=== PATIENT | female | born 1960 | race Caucasian/White ===

== ENCOUNTER 2022-09-12 12:18 | Emergency (ER) | payer OTHER ==
[2022-09-12] MEDS ORDERED: LIDOCAINE 1% INJ 20 ML VIAL INJ ONE (12:45)
[2022-09-12] MEDS ORDERED: TETANUS,DIPTH,PERTUSS P/F (BOOSTRIX) 0.5 ML VIAL IM ONE (12:45)
[2022-09-12 13:28] VITALS: BP 143/66
--- NOTE | 2022-09-12 13:30 | ED Upper Extremity ---
General Chief Complaint: Laceration Stated Complaint: LEFT HAND WOUND Nursing Triage Note: PT CUT HER HAND CUTTING STICKS TO ROAST HOT DOGS. LACERATION TO THE TOP OF THE HAND AND MINIMAL DEEPNESS, CLOSE TO JUST A SKIN TEAR. APPROXIMATELY 5CM. Source: patient History of Present Illness Date Seen by Provider: Sep 12, 2022 Time Seen by Provider: 12:22 Initial Comments 62-year-old female presenting with complaints of laceration to the back of her left hand. She was using scissors to try and cut through a zip tie on a pack of sticks to have roast hotdogs when the scissors slipped. She cut into the back of her left hand and has bleeding controlled with pressure. She denies any numbness or tingling in her fingers and has normal sensation of her hand and fingers. Bleeding has been controlled with pressure. It has been more than 5 years since her last tetanus booster. She denies any other injuries. Location Injury Occurred: Home Onset: just prior to arrival Severity: mild Pain/Injury Location: left hand Method of Injury: incised Modifying Factors: Worse With Movement Allergies and Home Medications Allergies Coded Allergies: No Known Drug Allergies (Unverified , 09/12/22) Patient Home Medication List Home Medication List Reviewed: Yes Review of Systems Constitutional: No chills, No fever EENTM: no symptoms reported Respiratory: no symptoms reported Cardiovascular: no symptoms reported Gastrointestinal: no symptoms reported Genitourinary: no symptoms reported Musculoskeletal: see HPI Skin: see HPI Psychiatric/Neurological: Denies Numbness, Denies Paresthesia, Denies Weakness Past Bdmsyao-Hwlazc-Dlsmbp Hx Patient Social History Tobacco Use?: Yes Tobacco type used: Cigarettes Smoking Status: Current Everyday Smoker Use of E-Cig and/or Vaping dev: No Substance use?: No Alcohol Use?: No Pt feels they are or have been: No Past Medical History Surgery/Hospitalization HX: 3 C-SECTIONS KNEE ARTHOSCOPY TONSILECTOMY Physical Exam Vital Signs Vital Signs - First Documented 09/12/22 12:26 Temp 36.3 Pulse 93 Resp 16 B/P (MAP) 143/66 (91) Pulse Ox 94 O2 Delivery Room Air Capillary Refill : Less Than 3 Seconds Height, Weight, BMI Height: '" Weight: lbs. oz. kg; BMI Method: General Appearance: WD/WN, other (anxious) Cardiovascular: normal peripheral pulses Wrist: Yes normal inspection, Yes non-tender, Yes no evidence of injury, Yes normal ROM Hand: normal ROM, Left, laceration (4.6 cm laceration to back of left hand), soft tissue tenderness Neurologic/Tendon: normal sensation, normal motor functions, normal tendon functions Neurologic/Psychiatric: telephoto engineer II-XII nml as tested, no motor/sensory deficits, alert, oriented x 3 Skin: normal color, warm/dry Procedures/Interventions Wound Location: Upper Extremities (back of left hand) Wound Length (cm): 4.6 Wound's Depth, Shape: linear, sub Q Wound Explored: clean Irrigated w/ Saline (ccs): 100 Betadine Prep?: No Anesthesia: 1% Lidocaine Volume Anesthetic (ccs): 7 Suture: Ethlion Suture Size: 4-0 Number of Sutures: 11 Sterile Dressing Applied?: Yes Progress After obtaining verbal consent from the patient the wound was cleaned with chlorhexidine scrub soap and sterile water. Using 7 mL of 1% plain lidocaine infiltrated in the wound for anesthetic. 4-0 Ethilon was utilized to approximate the wound edges using a total of 11 simple interrupted stitches. Patient tolerated procedure well without any immediate complications. Counseled to keep wound clean and dry for the next 24 hours and then may wash with soap and water. May apply antibiotic ointment and keep the wound covered if it might get dirty. Stitches to be removed in 10 to 14 days. Counseled to return sooner if seeing signs of infection such as redness streaking up her hand and arm, fever over 101 Fahrenheit, pus draining from the wound. Progress/Results/Core Measures Results/Orders My Orders Orders - ADEOLA VASQUES MD Dipht,Pertuss(Acell),Tet Adult (Boostrix (09/12/22 12:45) Lidocaine 1% Inj 20 Ml (Xylocaine 1% Inj (09/12/22 12:45) Suture Set At Bedside (09/12/22 12:33) Wound Dressing-Ed (09/12/22 12:33) Medications Given in ED Current Medications Medications Dose Ordered Sig/Willian Route Start Time Stop Time Status Last Admin Dose Admin Diphtheria/ Tetanus/Acell Pertussis 0.5 ml ONCE ONCE IM 09/12/22 12:45 09/12/22 12:47 DC 09/12/22 13:07 0.5 ML Lidocaine HCl 20 ml ONCE ONCE INJ 09/12/22 12:45 09/12/22 12:47 DC 09/12/22 13:18 20 ML Vital Signs/I&O 09/12/22 09/12/22 12:26 13:28 Temp 36.3 36.3 Pulse 93 93 Resp 16 16 B/P (MAP) 143/66 (91) 143/66 Pulse Ox 94 94 O2 Delivery Room Air Room Air Blood Pressure Mean: 91 Progress Progress Note : Progress Note After obtaining verbal consent from the patient the wound was cleaned with chlorhexidine scrub soap and sterile water. Using 7 mL of 1% plain lidocaine infiltrated in the wound for anesthetic. 4-0 Ethilon was utilized to approximate the wound edges using a total of 11 simple interrupted stitches. Patient tolerated procedure well without any immediate complications. Counseled to keep wound clean and dry for the next 24 hours and then may wash with soap and water. May apply antibiotic ointment and keep the wound covered if it might get dirty. Stitches to be removed in 10 to 14 days. Counseled to return sooner if seeing signs of infection such as redness streaking up her hand and arm, fever over 101 Fahrenheit, pus draining from the wound. Departure Impression Primary Impression: Laceration without foreign body of left hand, initial encounter Disposition: 01 HOME, SELF-CARE Condition: Stable Departure-Patient Inst. Decision time for Depature: 13:28 Referrals: SELFSONA MD (PCP/Family) Primary Care Physician Patient Instructions: Laceration Repair With Stitches ED Add. Discharge Instructions: Keep wound clean and dry for the first 24 hours. After that you may wash with soap and water but do not soak it. Keep the wound covered with a dressing and antibiotic ointment if it might get dirty. Otherwise you could leave it open to air. The stitches would need to be removed in 10 to 14 days. You may return here to the emergency department or follow-up with your primary care provider. Be seen sooner if you are having redness streaking up your hand and arm, fever over 101 Fahrenheit, pus draining from the wound. If these are happening then you would need antibiotics. All discharge instructions reviewed with patient and/or family. Voiced understanding. ADEOLA VASQUES MD Sep 12, 2022 13:30
== END 2022-09-12 13:33 | disposition home or self-care (01) ==
LOC: ER FS 12:24
DX: S61.412A Laceration without foreign body of left hand, initial encounter (principal); F17.210 Nicotine dependence, cigarettes, uncomplicated; Z23 Encounter for immunization; Z28.310 Unvaccinated for COVID-19; W27.2XXA Contact with scissors, initial encounter; Y92.009 Unspecified place in unspecified non-institutional (private) residence as the place of occurrence of the external cause
CPT/HCPCS: 12002; 90715

== ENCOUNTER 2022-09-25 08:23 | Emergency (ER) | payer OTHER ==
[~2022-09-25] VITALS: Ht 172 cm; Wt 88.8 kg
[2022-09-25 08:25] VITALS: BP 133/65
== END 2022-09-25 08:50 | disposition home or self-care (01) ==
LOC: EDUNIT# 08:23 → ER FS 08:25
DX: Z48.02 Encounter for removal of sutures (principal)